=== PATIENT | female | born 1970 | race Caucasian/White ===

== ENCOUNTER 2017-03-19 06:00 | Emergency (ER) | payer OTHER | END 2017-03-19 07:18 | disposition home or self-care (01) | LOC: ED 06:00 | DX: S46.911A Strain of unspecified muscle, fascia and tendon at shoulder and upper arm level, right arm, initial encounter (principal); I10 Essential (primary) hypertension; X58.XXXA Exposure to other specified factors, initial encounter; Y93.89 Activity, other specified; Y99.8 Other external cause status; Y92.89 Other specified places as the place of occurrence of the external cause | CPT/HCPCS: Q0092 ==

== ENCOUNTER 2017-03-29 23:47 | Emergency (ER) | payer OTHER ==
[2017-03-30 02:06] VITALS: BP 139/100
== END 2017-03-30 02:06 | disposition home or self-care (01) ==
LOC: ED 23:47
DX: R07.89 Other chest pain (principal); I10 Essential (primary) hypertension; B19.20 Unspecified viral hepatitis C without hepatic coma; Z91.040 Latex allergy status
CPT/HCPCS: Q0092

== ENCOUNTER 2017-11-27 21:30 | Emergency (ER) | payer OTHER ==
[~2017-11-27] VITALS: Ht 167.6 cm; Wt 76.2 kg
[2017-11-27 21:33] VITALS: Ht 167.6 cm; Wt 76.2 kg
[2017-11-27 22:20] VITALS: BP 136/96
[2017-11-28] MEDS ORDERED: ABILIFY15 M1 PO ×2 (09:53→16:40)
[2017-11-28] MEDS ORDERED: RIS1 PO ×2 (09:53→16:40)
[2017-11-28] MEDS ORDERED: HYDROCHLOROTHIA25 MG (09:54)
[2017-11-28] MEDS ORDERED: PRO30 PO (16:38)
== END 2017-11-27 22:20 | disposition home or self-care (01) ==
LOC: ED 21:30
DX: Z76.0 Encounter for issue of repeat prescription (principal); I10 Essential (primary) hypertension; Z91.040 Latex allergy status

== ENCOUNTER 2017-11-28 08:05 | Emergency (ER) | payer OTHER ==
[~2017-11-28] VITALS: Ht 167.6 cm; Wt 76.7 kg
[2017-11-28 08:15] VITALS: Ht 167.6 cm; Wt 76.7 kg
[2017-11-28 09:44] LABS: AMPHETAMINE QUAL UR POSITIVE (NEG <=1000)
[2017-11-28 09:46] LABS: BASOPHIL % 0.4 % (0-2); PLATELET COUNT 284 x10^3mcL (130-400)
[2017-11-28 09:48] LABS: RED CELL DISTRIBUTION WIDTH 17.4 % (11.5-14.5)
[2017-11-28] MEDS ORDERED: RIS1 PO ×2 (09:53→16:40)
[2017-11-28] MEDS ORDERED: ABILIFY15 M1 PO ×2 (09:53→16:40)
[2017-11-28] MEDS ORDERED: HYDROCHLOROTHIA25 MG (09:54)
[2017-11-28 10:05] LABS: CARBON DIOXIDE 27.7 mmol/L (21-32); CHLORIDE SERUM 104 mmol/L (98-107); CREATININE SERUM 0.7 mg/dL (0.6-1.0); GFR1 > 60 mL/min; GLUCOSE SERUM 118 mg/dL (74-106); POTASSIUM SERUM 4.1 mmol/L (3.5-5.1); SODIUM SERUM 138 mmol/L (136-145)
[2017-11-28 10:09] LABS: ALBUMIN 3.6 g/dL (3.4-5.0); ALKALINE PHOSPHATASE 79 U/L (46-116); ALT/SGPT 20 U/L (14-59); AST/SGOT 16 U/L (15-37); BILIRUBIN TOTAL 0.5 mg/dL (0.20-1.00); TOTAL PROTEIN, SERUM 7.2 g/dL (6.4-8.2)
[2017-11-28 11:56] LABS: MAGNESIUM 2.3 mg/dL (1.8-2.4); PHOSPHOROUS 4.2 mg/dL (2.5-4.9)
[2017-11-28 11:59] LABS: CHOLESTEROL/HDL RATIO 1.7
[2017-11-28 12:04] LABS: FREE T4 1.27 ng/dL (0.76-1.46); FREE THYROXINE INDEX 3.2 ug/dL (1.4-4.5); T4(THYROXINE) 9.8 ug/dL (4.7-13.3)
[2017-11-28 15:49] LABS: T3 TOTAL 1.65 ng/mL
[2017-11-28] MEDS ORDERED: PRO30 PO (16:38)
[2017-11-29 04:59] LABS: BASOPHIL % 0.3 % (0-2); PLATELET COUNT 276 x10^3mcL (130-400)
[2017-11-29 05:00] LABS: RED CELL DISTRIBUTION WIDTH 17.1 % (11.5-14.5)
[2017-11-29 05:07] LABS: CALCIUM 8.2 mg/dL (8.5-10.1); CARBON DIOXIDE 23.9 mmol/L (21-32); CHLORIDE SERUM 107 mmol/L (98-107); CREATININE SERUM 0.5 mg/dL (0.6-1.0); GFR1 > 60 mL/min; GLUCOSE SERUM 95 mg/dL (74-106); MAGNESIUM 1.8 mg/dL (1.8-2.4); PHOSPHOROUS 3.6 mg/dL (2.5-4.9); POTASSIUM SERUM 4.1 mmol/L (3.5-5.1); SODIUM SERUM 137 mmol/L (136-145)
[2017-11-29 11:46] VITALS: BP 147/85
== END 2017-11-29 11:46 | disposition home or self-care (01) ==
LOC: ED 08:05 → DU 09:50 → MU 09:50 → DU 09:50 → ED 09:50 → DU 15:25 → MU 15:25 → DU 15:25 → MU 11-30 09:50 → DU 11-30 09:50 → ED 11-30 09:50 → DU 11-30 09:50
PROVIDERS: Emergency Medicine; Family Medicine
DX: G92 Toxic encephalopathy (principal); T43.595A Adverse effect of other antipsychotics and neuroleptics, initial encounter; I45.81 Long QT syndrome; F31.9 Bipolar disorder, unspecified; I10 Essential (primary) hypertension; Y92.89 Other specified places as the place of occurrence of the external cause; Z88.8 Allergy status to other drugs, medicaments and biological substances
CPT/HCPCS: 83880; 84439; G0480; J2310; J3475; J7030

== ENCOUNTER 2018-12-28 06:38 | Emergency (ER) | payer OTHER ==
[~2018-12-28] VITALS: Ht 165.1 cm; Wt 97.7 kg
[~2018-12-28 06:38] MED LIST: ABILIFY15 M1 PO; HYDROCHLOROTHIA25 MG; PRO30 PO; RIS1 PO
[2018-12-28 06:42] VITALS: Ht 165.1 cm; Wt 97.7 kg
[2018-12-28 07:42] LABS: BASOPHIL % 0.1 % (0-2); PLATELET COUNT 215 x10^3mcL (130-400); RED CELL DISTRIBUTION WIDTH 14.6 % (11.5-14.5)
[2018-12-28 07:57] LABS: CALCIUM 9.7 mg/dL (8.5-10.1); CARBON DIOXIDE 22.3 mmol/L (21-32); CHLORIDE SERUM 106 mmol/L (98-107); CREATININE SERUM 0.8 mg/dL (0.6-1.0); GFR1 > 60 mL/min; GLUCOSE SERUM 114 mg/dL (74-106); POTASSIUM SERUM 4.5 mmol/L (3.5-5.1); SODIUM SERUM 140 mmol/L (136-145)
[2018-12-28 08:01] LABS: ALBUMIN 3.5 g/dL (3.4-5.0); ALKALINE PHOSPHATASE 80 U/L (46-116); ALT/SGPT 43 U/L (14-59); AST/SGOT 26 U/L (15-37); BILIRUBIN TOTAL 0.43 mg/dL (0.20-1.00); LIPASE 88 IU/L (73-393); TOTAL PROTEIN, SERUM 7.1 g/dL (6.4-8.2)
[2018-12-28 10:02] VITALS: BP 124/73
== END 2018-12-28 10:03 | disposition home or self-care (01) ==
LOC: ED 06:38
PROVIDERS: Emergency Medicine
DX: N39.0 Urinary tract infection, site not specified (principal); K29.70 Gastritis, unspecified, without bleeding; I10 Essential (primary) hypertension; F31.9 Bipolar disorder, unspecified; Z86.19 Personal history of other infectious and parasitic diseases; Z86.2 Personal history of diseases of the blood and blood-forming organs and certain disorders involving the immune mechanism; Z91.040 Latex allergy status
CPT/HCPCS: J2270; J2405; Q0092

== ENCOUNTER 2019-01-31 18:27 | Emergency (ER) | payer OTHER ==
[~2019-01-31] VITALS: Ht 165.1 cm; Wt 90.7 kg
[2019-01-31 21:00] VITALS: BP 177/119
== END 2019-01-31 21:00 | disposition home or self-care (01) ==
LOC: ED 18:27
DX: M54.6 Pain in thoracic spine (principal); I10 Essential (primary) hypertension; F31.9 Bipolar disorder, unspecified; Z98.890 Other specified postprocedural states; Z91.040 Latex allergy status; Z86.2 Personal history of diseases of the blood and blood-forming organs and certain disorders involving the immune mechanism; Z86.19 Personal history of other infectious and parasitic diseases
CPT/HCPCS: J1885